=== PATIENT | male | born 1970 | race Caucasian/White ===

== ENCOUNTER 2019-10-01 07:46 | Emergency (ER) | payer OTHER ==
[2019-10-01] MEDS ORDERED: FENTANYL CITR 100 MCG/2 ML ONE (08:03)
[2019-10-01] MEDS ORDERED: ONDANSETRON 4 MG/2 ML VIAL ONE ×2 (08:03→09:41)
[2019-10-01] MEDS ORDERED: KETOROLAC 30 MG/ML INJ ONE (08:03)
[2019-10-01 08:09] LABS: Absolute Lymphocytes (CBC) 2.3 K/uL (0.7-4.9); Hematocrit 43.5 % (39.6-49.0); Lymphocytes % 31.1 % (15.3-44.8); MPV 9.8 fL (7.6-11.3)
[2019-10-01] MEDS ORDERED: NA CHLORIDE 0.9% 500 ML ONE (08:14)
[2019-10-01 08:31] LABS: Albumin 4.3 g/dL (3.4-5.0); Bilirubin Direct 0.1 mg/dL (0-0.2); Bilirubin Total 0.6 mg/dL (0.2-1.0); Potassium 3.5 mmol/L (3.5-5.1); Protein, Total 8.2 g/dL (6.4-8.2)
[2019-10-01] MEDS ORDERED: HYDROMORPHONE HCL 1 MG/ML INJ ONE (08:55)
--- NOTE | 2019-10-01 09:07 | RAD REPORT ---
EXAM DESCRIPTION: CT - Stone Protocol - 10/01/2019 8:39 am CLINICAL HISTORY: Abdominal pain. COMPARISON: None. TECHNIQUE: Computed axial tomography of the abdomen pelvis was obtained without oral or IV contrast. Lack of IV and oral contrast limits evaluation of solid organs, bowel, and vessels. Coronal reformat rashad images were obtained and reviewed. All CT scans are performed using dose optimization technique as appropriate and may include automated exposure control or mA/KV adjustment according to patient size. FINDINGS: Several small left renal calculi. Left perirenal stranding. Mild left hydronephrosis. 18 m illimeter low-density left renal mass. 6 millimeter calculus within the mid left ureter. [place]oun[place] u nit 590 No right renal calculus Small hiatal hernia The liver, spleen, pancreas and adrenals appear grossly normal There is no evidence of diverticulitis. Small left inguinal hernia contains fat IMPRESSION: A 6 millimeter calculus mid left ureter resulting in mild left hydronephrosis An 18 millimeter low-density left renal mass is nonspecific without IV contrast but probably a cyst. This can be confirmed with nonemergent ultrasound
--- NOTE | 2019-10-01 10:10 | EDPHYS ---
Physician Documentation [facility] Name: Ben Miranda Age: 49 yrs Sex: Male : 1970 Arrival Date: 10/01/2019 Time: 07:48 Bed 19 Private MD: ED Physician Brian Adorno HPI: 09/30 08:23 This 49 yrs old Male presents to ER via Wheelchair with complaints of Pain On jr8 Lower Left Side. 08:23 The patient presents with abdominal pain in the left lower quadrant. Onset: The jr8 symptoms/episode began/occurred acutely, this morning. The symptoms radiate to left back, the left flank. Associated signs and symptoms: Pertinent positives: nausea and vomiting. The symptoms are described as stabbing. Modifying factors: The symptoms are alleviated by nothing, the symptoms are aggravated by nothing. Severity of pain: At its worst the pain was moderate in the emergency department the pain is unchanged. It is unknown whether or not the patient has had similar symptoms in the past. The patient has not recently seen a physician. Historical: - Allergies: 07:49 No Known Allergies; rb1 - Home Meds: 07:49 amlodipine oral [Active]; Hyzaar Oral [Active]; rb1 - PMHx: 07:49 Anxiety; blood pressure; rb1 - Immunization history:: Adult Immunizations up to date. ROS: 08:55 Eyes: Negative for injury, pain, redness, and discharge, ENT: Negative for injury, jr8 pain, and discharge, Neck: Negative for injury, pain, and swelling, Cardiovascular: Negative for chest pain, palpitations, and edema, Respiratory: Negative for shortness of breath, cough, wheezing, and pleuritic chest pain, Back: Negative for injury and pain, MS/Extremity: Negative for injury and deformity, Skin: Negative for injury, rash, and discoloration, Neuro: Negative for headache, weakness, numbness, tingling, and seizure. 08:55 Abdomen/GI: Positive for abdominal pain, nausea and vomiting, Negative for diarrhea, constipation, abdominal cramps, abdominal distension. Exam: 08:55 Eyes: Pupils equal round and reactive to light, extra-ocular motions intact. Lids and jr8 lashes normal. Conjunctiva and sclera are non-icteric and not injected. Cornea within normal limits. Periorbital areas with no swelling, redness, or edema. ENT: Nares patent. No nasal discharge, no septal abnormalities noted. Tympanic membranes are normal and external auditory canals are clear. Oropharynx with no redness, swelling, or masses, exudates, or evidence of obstruction, uvula midline. Mucous membranes moist. Neck: Trachea midline, no thyromegaly or masses palpated, and no cervical lymphadenopathy. Supple, full range of motion without nuchal rigidity, or vertebral point tenderness. No Meningismus. Cardiovascular: Regular rate and rhythm with a normal S1 and S2. No gallops, murmurs, or rubs. Normal PMI, no JVD. No pulse deficits. Respiratory: Lungs have equal breath sounds bilaterally, clear to auscultation and percussion. No rales, rhonchi or wheezes noted. No increased work of breathing, no retractions or nasal flaring. Back: No spinal tenderness. No costovertebral tenderness. Full range of motion. Skin: Warm, dry with normal turgor. Normal color with no rashes, no lesions, and no evidence of cellulitis. MS/ Extremity: Pulses equal, no cyanosis. Neurovascular intact. Full, normal range of motion. Neuro: Awake and alert, GCS 15, oriented to person, place, time, and situation. Cranial nerves II-XII grossly intact. Motor strength 5/5 in all extremities. Sensory grossly intact. Cerebellar exam normal. Normal gait. 08:55 Abdomen/GI: Inspection: abdomen appears normal, Bowel sounds: active, all quadrants, Palpation: soft, in all quadrants, moderate abdominal tenderness, in the anterior aspect of left lateral abdomen and left lower quadrant, mass, is not appreciated, rebound tenderness, is not appreciated, voluntary guarding, is not appreciated, involuntary guarding, is not appreciated, no appreciated organomegaly, Indicators: McBurney's point is not tender, Andrews's sign is negative, Rovsing's sign is negative, Liver: tenderness, is not appreciated. Vital Signs: 07:49 BP 157 / 95; Pulse 68; Resp 20; Temp 98.9(O); Pulse Ox 100% on R/A; Weight 90.72 kg rb1 (R); Height 5 ft. 8 in. (172.72 cm) (R); Pain 10/10; 08:49 BP 140 / 74; Pulse 63; Resp 17; Pulse Ox 100% ; rb1 09:48 BP 154 / 89; Pulse 64; Resp 18; Pulse Ox 99% on R/A; rb1 10:48 BP 132 / 86; Pulse 64; Resp 17; Pulse Ox 97% ; rb1 07:49 Body Mass Index 30.41 (90.72 kg, 172.72 cm) rb1 MDM: 07:56 Patient medically screened. jr8 10:08 Data reviewed: vital signs, nurses notes, lab test result(s), radiologic studies, CT jr8 scan. Data interpreted: Pulse oximetry: on room air is 99 %. Interpretation: normal. Counseling: I had a detailed discussion with the patient and/or guardian regarding: the historical points, exam findings, and any diagnostic results supporting the discharge/admit diagnosis, lab results, radiology results, the need for outpatient follow up, a urologist, to return to the emergency department if symptoms worsen or persist or if there are any questions or concerns that arise at home. Response to treatment: the patient's symptoms have markedly improved after treatment, able to urinate. 09/30 07:56 Order name: Basic Metabolic Panel; Complete Time: 08:31 09/30 07:56 Order name: CBC with Diff; Complete Time: 08:54 09/30 07:56 Order name: Creatinine for Radiology; Complete Time: 08:31 09/30 07:56 Order name: Hepatic Function; Complete Time: 08:31 09/30 07:56 Order name: Lipase; Complete Time: 08:31 09/30 10:59 Order name: Urine Dipstick--Ancillary (enter results) em1 09/30 07:56 Order name: IV Saline Lock; Complete Time: 08:04 09/30 07:56 Order name: Labs collected and sent; Complete Time: 08:04 09/30 08:08 Order name: CT Stone Protocol; Complete Time: 09:15 09/30 07:57 Order name: Urine Dipstick-Ancillary (obtain specimen); Complete Time: 11:00 8 Administered Medications: 08:05 Drug: fentaNYL (PF) 50 mcg Route: IVP; Site: right antecubital; rb1 08:20 Follow up: Response: No adverse reaction rb1 08:05 Drug: TORadol - Ketorolac 15 mg Route: IVP; Site: right antecubital; rb1 08:20 Follow up: Response: No adverse reaction; Pain is decreased rb1 08:05 Drug: Zofran (Ondansetron) 4 mg Route: IVP; Site: right antecubital; rb1 08:20 Follow up: Response: No adverse reaction; Nausea is decreased rb1 08:09 Drug: NS 0.9% 500 ml Route: IV; Rate: bolus; Site: right antecubital; rb1 08:48 Follow up: IV Status: Completed infusion rb1 08:52 Drug: Dilaudid 1 mg Route: IVP; Site: right antecubital; rb1 09:07 Follow up: Response: No adverse reaction; Pain is decreased rb1 Disposition: 12:37 Co-signature as Attending Physician, Brian Adorno MD I agree with the assessment and kdr plan of care. Disposition: 10/01/19 10:09 Discharged to Home. Impression: Hydronephrosis with renal and ureteral calculous obstruction. - Condition is Stable. - Discharge Instructions: Kidney Stones, Hydronephrosis. - Prescriptions for Cipro 500 mg Oral Tablet - take 1 tablet by ORAL route every 12 hours for 7 days; 14 tablet. Tylenol- Codeine #3 300-30 mg Oral Tablet - take 2 tablets by ORAL route every 6 hours As needed; 20 tablet. Zofran 4 mg Oral Tablet - take 1 tablet by ORAL route every 8 hours As needed; 20 tablet. Flomax 0.4 mg Oral Capsule, Sust. Release 24 hr - take 1 capsule by ORAL route once daily 1/2 hour following the same meal each day; 30 capsule. - Medication Reconciliation Form, Thank You Letter, Antibiotic Education, Prescription Opioid Use form. - Follow up: Pedro Gray MD; When: 48 Hours; Reason: Recheck today's complaints, Continuance of care, Re-evaluation by your physician. - Problem is new. - Symptoms have improved. Signatures: Dispatcher [employer] EDMS Brian Adorno MD MD kdr Roszak, Josh, PA PA jr8 Chanda Mcarthur, RN RN rb1 Corrections: (The following items were deleted from the chart) 11:19 10:09 10/01/2019 10:09 Discharged to Home. Impression: Hydronephrosis with renal and rb1 ureteral calculous obstruction. Condition is Stable. Forms are Medication Reconciliation Form, Thank You Letter, Antibiotic Education, Prescription Opioid Use. Follow up: Pedro Gray; When: 48 Hours; Reason: Recheck today's complaints, Continuance of care, Re-evaluation by your physician. Problem is new. Symptoms have improved. jr8
--- NOTE | 2019-10-01 10:10 | ER ---
Nurse's Notes [facility] Name: Ben Miranda Age: 49 yrs Sex: Male : 1970 Arrival Date: 10/01/2019 Time: 07:48 Bed 19 Private MD: Diagnosis: Hydronephrosis with renal and ureteral calculous obstruction Presentation: 09/30 07:49 Chief complaint: Patient states: Pain on the left side that started 0610 this morning. rb1 C/o nausea and vomiting. Pt. is diaphoretic. Coronavirus screen: Proceed with normal triage. Ebola Screen: Patient negative for fever greater than or equal to 101.5 degrees Fahrenheit, and additional compatible Ebola Virus Disease symptoms. Initial Sepsis Screen: Does the patient meet any 2 criteria? No. Patient's initial sepsis screen is negative. Does the patient have a suspected source of infection? No. Patient's initial sepsis screen is negative. Risk Assessment: Do you want to hurt yourself or someone else? Patient reports no desire to harm self or others. Onset of symptoms was October 01, 2019 at 06:10. 07:49 Method Of Arrival: Wheelchair rb1 07:49 Acuity: PIPER 3 rb1 Triage Assessment: 07:49 General: Appears distressed, uncomfortable, Behavior is anxious, Denies fever. Pain: rb1 Complains of pain in left lower quadrant Pain radiates to back Pain currently is 10 out of 10 on a pain scale. Neuro: Level of Consciousness is awake, alert, obeys commands, Oriented to person, place, time, situation. Cardiovascular: Capillary refill < 3 seconds. Respiratory: Airway is patent Respiratory effort is even, unlabored, Respiratory pattern is regular, symmetrical. GI: Reports nausea, vomiting, since 0610 this morning. Derm: Skin is diaphoretic, Skin is normal, Skin temperature is cool. Historical: - Allergies: 07:49 No Known Allergies; rb1 - Home Meds: 07:49 amlodipine oral [Active]; Hyzaar Oral [Active]; rb1 - PMHx: 07:49 Anxiety; blood pressure; rb1 - Immunization history:: Adult Immunizations up to date. Screenin:49 Abuse screen: Denies threats or abuse. Nutritional screening: No deficits noted. rb1 Tuberculosis screening: No symptoms or risk factors identified. Fall Risk None identified. Assessment: 07:49 General: See triage assessment. rb1 09:57 Reassessment: With pt. permission I gave the pt. an update on the POC and test rb1 results. 10:48 Reassessment: Patient appears in no apparent distress at this time. Patient and/or rb1 family updated on plan of care and expected duration. Pain level reassessed. Patient is alert, oriented x 3, equal unlabored respirations, skin warm/dry/pink. Vital Signs: 07:49 BP 157 / 95; Pulse 68; Resp 20; Temp 98.9(O); Pulse Ox 100% on R/A; Weight 90.72 kg rb1 (R); Height 5 ft. 8 in. (172.72 cm) (R); Pain 10/10; 08:49 BP 140 / 74; Pulse 63; Resp 17; Pulse Ox 100% ; rb1 09:48 BP 154 / 89; Pulse 64; Resp 18; Pulse Ox 99% on R/A; rb1 10:48 BP 132 / 86; Pulse 64; Resp 17; Pulse Ox 97% ; rb1 07:49 Body Mass Index 30.41 (90.72 kg, 172.72 cm) rb1 ED Course: 07:48 Patient arrived in ED. ag5 07:49 Chanda Mcarthur, RN is Primary Nurse. rb1 07:49 Patient has correct armband on for positive identification. Bed in low position. Call rb1 light in reach. Side rails up X 1. Pulse ox on. NIBP on. Warm blanket given. 07:49 Arm band placed on right wrist. rb1 07:56 Yusef Cuello [facility]. jr8 07:56 Brian Adorno MD is Attending Physician. jr8 08:03 Initial lab(s) drawn, by ne, sent to lab. Inserted saline lock: 20 gauge in right iw antecubital area, using aseptic technique. Blood collected. 08:20 Triage completed. rb1 08:39 CT Stone Protocol In Process Unspecified. EDMS 10:09 Pedro Gray MD is Referral Physician. jr8 11:00 No provider procedures requiring assistance completed. IV discontinued, intact, rb1 bleeding controlled, No redness/swelling at site. Pressure dressing applied. 11:03 Urine collected: clean catch specimen, clear. dh3 Administered Medications: 08:05 Drug: fentaNYL (PF) 50 mcg Route: IVP; Site: right antecubital; rb1 08:20 Follow up: Response: No adverse reaction rb1 08:05 Drug: TORadol - Ketorolac 15 mg Route: IVP; Site: right antecubital; rb1 08:20 Follow up: Response: No adverse reaction; Pain is decreased rb1 08:05 Drug: Zofran (Ondansetron) 4 mg Route: IVP; Site: right antecubital; rb1 08:20 Follow up: Response: No adverse reaction; Nausea is decreased rb1 08:09 Drug: NS 0.9% 500 ml Route: IV; Rate: bolus; Site: right antecubital; rb1 08:48 Follow up: IV Status: Completed infusion rb1 08:52 Drug: Dilaudid 1 mg Route: IVP; Site: right antecubital; rb1 09:07 Follow up: Response: No adverse reaction; Pain is decreased rb1 Outcome: 10:09 Discharge ordered by . jrRobson 11:00 Patient left the ED. rb1 11:00 Discharged to home via wheelchair, with family. rb1 11:00 Condition: stable 11:00 Discharge instructions given to patient, Instructed on discharge instructions, follow up and referral plans. medication usage, Demonstrated understanding of instructions, follow-up care, medications, Prescriptions given X 4. Signatures: Dispatcher [employer] EDMS Amaya Carcamo RN Yusef Silva PA PA jr8 Chanda Mcarthur RN RN rb1 Nichol Petersen 3 Segundo Bauer ag5 Corrections: (The following items were deleted from the chart) 11:22 11:19 Patient left the ED. rb1 rb1
[2019-10-01 11:36] LABS: Urine Blood 1+ (NEG); Urine Glucose NEGATIVE (NEG); Urine Protein NEGATIVE (NEG); Urine Specific Gravity 1.025 (1.005-1.030)
[2019-10-02 01:31] VITALS: TEMP 98.9
[2019-10-02 01:35] VITALS: BP 132/86; O2SAT 97
== END 2019-10-01 11:19 | disposition home or self-care (01) ==
LOC: ER 07:46
DX: N13.2 Hydronephrosis with renal and ureteral calculous obstruction (principal); F41.9 Anxiety disorder, unspecified
CPT/HCPCS: 96361; 85025; 80048; 36415; 80076; 81003; 83690; 76377; 74176; 96375; 96374; 99284; J3010; J1170; J7040; J2405 ×2